=== PATIENT | female | born 1990 | race Caucasian/White ===

== ENCOUNTER → 2016-08-31 | Outpatient (CLI) | payer OTHER ==
[~2016-08-31] MED LIST: AMOXICILLIN 8751 TAB PO; CEFTIN 250250 MG/TAB PO; CIPRO 500MG TA500 MG PO; DIFLUCAN 100MG100 MG PO; DIFLUCAN150 MG PO; FLAGYL500 MG PO; FLEXERIL 1010 MG/TAB PO; IMPLANON68 MG ID; KADIAN10 MG PO; LEXAPRO 5MG5 MG PO; LIALDA 1.2 GM1.2 GM PO; LUNESTA2 MG PO; MIRENA52 MG IU; NORCO 325 MG-51 TAB PO; NORCO 325 MG-7.1 TAB PO; NUVARING VAG RING VG; ORTHO EVRA1 TDM TD; PEPCID 20MG TAB20 MG PO; PERCOCET 325 MG1 TA2 PO; PREDNISONE 5MG5 MG PO; SUPER EPA W/BO400 MG PO; ULTRAM 50MG TAB50 MG PO; ZOFRAN ODT4 MG PO; ZOLOFT 25MG25 MG PO; [UNRECOGNIZED DRUG - OTHER]
== END ==
LOC: BHSO 14:05
DX: F41.1 Generalized anxiety disorder (principal)

== ENCOUNTER 2016-09-04 01:55 | Emergency (ER) | payer OTHER ==
[~2016-09-04] VITALS: Ht 160 cm; Wt 60.0 kg
[~2016-09-04 01:55] MED LIST changes: -KADIAN10 MG PO
[2016-09-04 02:00] VITALS: BP 126/85; TEMP 98.2
[2016-09-04 02:25] VITALS: PULSE 90
== END 2016-09-04 02:26 | disposition home or self-care (01) ==
LOC: COL.ER 01:55
DX: R09.81 Nasal congestion (principal)

== ENCOUNTER → 2016-09-07 | Outpatient (CLI) | payer OTHER ==
[~2016-09-07] MED LIST changes: +KADIAN10 MG PO
== END ==
LOC: BHSO 14:58
DX: F33.0 Major depressive disorder, recurrent, mild (principal)

== ENCOUNTER → 2016-11-23 | Outpatient (CLI) | payer OTHER | LOC: BHSO 16:06 | DX: F41.1 Generalized anxiety disorder (principal) ==

== ENCOUNTER → 2017-01-02 | Outpatient (CLI) | payer OTHER | LOC: BHSO 15:59 | DX: F41.1 Generalized anxiety disorder (principal) ==

== ENCOUNTER 2017-03-21 22:56 | Emergency (ER) | payer OTHER ==
[~2017-03-21] VITALS: Ht 160 cm; Wt 61.4 kg
[~2017-03-21 22:56] MED LIST changes: -KADIAN10 MG PO
[2017-03-21 22:58] VITALS: TEMP 98.1
[2017-03-21] MEDS ORDERED: LIALDA 1.2 GM1.2 GM PO (23:02)
[2017-03-21] MEDS ORDERED: KADIAN10 MG PO (23:02)
[2017-03-22 01:30] VITALS: BP 124/68; PULSE 78
== END 2017-03-22 01:30 | disposition home or self-care (01) ==
LOC: COL.ER 22:56
DX: M54.6 Pain in thoracic spine (principal); X50.0XXA Overexertion from strenuous movement or load, initial encounter; W19.XXXA Unspecified fall, initial encounter

== ENCOUNTER → 2017-09-15 | Outpatient (CLI) | payer OTHER ==
[~2017-09-15] MED LIST changes: +KADIAN10 MG PO
== END ==
LOC: BHSO 14:56
DX: F33.0 Major depressive disorder, recurrent, mild (principal)

== ENCOUNTER → 2017-09-19 | Outpatient (CLI) | payer OTHER | LOC: BHSO 10:10 | DX: F33.1 Major depressive disorder, recurrent, moderate (principal) ==

== ENCOUNTER → 2017-09-27 | Outpatient (CLI) | payer OTHER | LOC: BHSO 09:02 | DX: F33.1 Major depressive disorder, recurrent, moderate (principal) ==

== ENCOUNTER → 2017-10-03 | Outpatient (CLI) | payer OTHER | LOC: BHSO 09:05 | DX: F33.1 Major depressive disorder, recurrent, moderate (principal) ==

== ENCOUNTER → 2017-10-05 | Outpatient (CLI) | payer OTHER | LOC: BHSO 13:03 | DX: F33.1 Major depressive disorder, recurrent, moderate (principal) ==

== ENCOUNTER → 2017-10-11 | Outpatient (CLI) | payer OTHER | LOC: BHSO 09:04 | DX: F33.1 Major depressive disorder, recurrent, moderate (principal) ==

== ENCOUNTER → 2017-11-03 | Outpatient (CLI) | payer OTHER | LOC: BHSO 08:59 | DX: F33.1 Major depressive disorder, recurrent, moderate (principal) ==

== ENCOUNTER → 2017-11-06 | Outpatient (CLI) | payer OTHER | LOC: BHSO 11:04 | DX: F33.1 Major depressive disorder, recurrent, moderate (principal) ==

== ENCOUNTER → 2017-11-08 | Outpatient (CLI) | payer OTHER | LOC: BHSO 13:45 | DX: F33.41 Major depressive disorder, recurrent, in partial remission (principal) | CPT/HCPCS: G0463 ==

== ENCOUNTER 2024-02-06 04:06 | Emergency (ER) | payer BC ==
[~2024-02-06] VITALS: Ht 160 cm; Wt 59.1 kg
[2024-02-06] MEDS ORDERED: NS 500 ML IV ONE (05:00)
[2024-02-06] MEDS ORDERED: dexAMETHasone 10 MG/ML VIAL IV ONE (05:00)
[2024-02-06] MEDS ORDERED: diphenhydrAMINE 50 MG/ML 1 ML VIAL IV ONE (05:00)
[2024-02-06] MEDS ORDERED: Magnesium Sulfate 4% 50 ML IV ONE (05:00)
[2024-02-06] MEDS ORDERED: Ketorolac 30 MG/ML VIAL IV ONE (05:00)
[2024-02-06 06:31] VITALS: BP 122/82; PULSE 78
== END 2024-02-06 06:33 | disposition home or self-care (01) ==
LOC: COL.ER 04:06
DX: G43.009 Migraine without aura, not intractable, without status migrainosus (principal)
CPT/HCPCS: J1100; J1200; J1885; J2765; J3475; J7040